=== PATIENT | male | born 1965 | race Caucasian/White ===

== ENCOUNTER 2018-01-25 21:15 | Inpatient (IN) | payer MEDICAID ==
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
[2018-01-25] MEDS ORDERED: HYDROMORPHONE HCL INJ/PF 2 MG/ML AMPULE IV ONE (22:08)
[2018-01-25] MEDS ORDERED: NORMAL SALINE 1000 ML 1,000 ML IV ONE (22:08)
[2018-01-25 22:42] LABS: ABSOLUTE BASOPHILS # (AUTO) 0.1 10^3/uL (0.0-0.2); ABSOLUTE LYMPHOCYTES (AUTO) 1.2 10^3/uL (0.5-4.7); ABSOLUTE MONOCYTES (AUTO) 0.7 10^3/uL (0.1-1.4); ABSOLUTE NEUT (AUTO) 10.1 10^3/uL (1.7-8.2); BASOPHILS % (AUTO) 0.7 % (0-2); EOSINOPHILS % (AUTO) 0.1 % (0-6); HEMATOCRIT 45.4 % (37.9-51.0); HEMOGLOBIN 15.4 g/dL (13.5-17.0); LYMPHOCYTES % (AUTO) 10.1 % (13-45); MEAN CORPUSCULAR HEMOGLOBIN 32.2 pg (27.0-33.4); MEAN CORPUSCULAR VOLUME 95 fl (80-97); MONOCYTES % (AUTO) 5.6 % (3-13); PLATELET COUNT 190 10^3/uL (150-450); RED BLOOD COUNT 4.79 10^6/uL (4.35-5.55); RED CELL DISTRIBUTION WIDTH 13.8 % (11.5-14.0); SEGMENTED NEUTROPHILS % (AUTO) 83.5 % (42-78); TOTAL CELLS COUNTED % (AUTO) 100 %; WHITE BLOOD COUNT 12.2 10^3/uL (4.0-10.5)
[2018-01-25 23:09] LABS: ALANINE AMINOTRANSFERASE 36 U/L (21-72); ALBUMIN 4.5 g/dL (3.5-5.0); ALKALINE PHOSPHATASE 56 U/L (38-126); ANION GAP 14 (5-19); ASPARTATE AMINO TRANSFERASE 62 U/L (17-59); BILIRUBIN,DIRECT 0.3 mg/dL (0.0-0.4); BILIRUBIN,TOTAL 0.4 mg/dL (0.2-1.3); BLOOD UREA NITROGEN 6 mg/dL (7-20); CALCIUM 9.5 mg/dL (8.4-10.2); CARBON DIOXIDE 28 mmol/L (22-30); CHLORIDE 101 mmol/L (98-107); GLUCOSE 122 mg/dL (75-110); POTASSIUM 3.7 mmol/L (3.6-5.0); SODIUM 142.6 mmol/L (137-145); TOTAL PROTEIN 7.6 g/dL (6.3-8.2)
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
[2018-01-26] MEDS ORDERED: HYDROMORPHONE HCL INJ/PF 2 MG/ML AMPULE IV ONE (00:36)
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
[2018-01-26] MEDS ORDERED: MORPHINE SULFATE 10 MG/ML INJ IV PRN (03:25)
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
[2018-01-26] MEDS: NORMAL SALINE 1000 ML 1,000 ML IV PRN ×2 (06:26→19:40)
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
--- NOTE | 2018-01-26 10:38 | RADIOLOGY REPORT (SQ) ---
EXAM DESCRIPTION: CHEST SINGLE VIEW COMPLETED DATE/TIME: 01/26/2018 9:41 am REASON FOR STUDY: f/u ptx COMPARISON: CT chest 01/26/2018 EXAM PARAMETERS: NUMBER OF VIEWS: One view. TECHNIQUE: Single frontal radiographic view of the chest acquired. RADIATION DOSE: NA LIMITATIONS: None. FINDINGS: LUNGS AND PLEURA: There is marked apical lucency consistent with presence of large bullae seen on the CT. There is no evidence of an enlarging pneumothorax. MEDIASTINUM AND HILAR STRUCTURES: No masses. Contour normal. HEART AND VASCULAR STRUCTURES: Heart normal in size. Normal vasculature. BONES: Fracture of the distal left clavicle, possible acromial fracture, left rib fractures. HARDWARE: None in the chest. OTHER: No other significant finding. IMPRESSION: There is no evidence of enlarging pneumothorax. Large apical bullae are present. TECHNICAL DOCUMENTATION: JOB ID: [id number] [employer]- All Rights Reserved Reading location - IP/workstation name: [email or web address]
[2018-01-26] MEDS ORDERED: GUAIFENESIN SYRP 200 MG/10 ML UDC PO PRN (11:36)
[2018-01-26] MEDS ORDERED: NICOTINE 21 MG/24 HR PATCH.TD24 TD ONE (12:00)
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
[2018-01-26] MEDS: OXYCODONE-ACETAMINOPHEN 5-325 MG TABLET PO PRN (19:40)
[2018-01-27] MEDS: OXYCODONE-ACETAMINOPHEN 5-325 MG TABLET PO PRN (05:19)
[2018-01-27] MEDS: NORMAL SALINE 1000 ML 1,000 ML IV PRN (05:20)
[2018-01-27 06:15] LABS: HEMATOCRIT 42.8 % (37.9-51.0); HEMOGLOBIN 14.6 g/dL (13.5-17.0); MEAN CORPUSCULAR HEMOGLOBIN 32.3 pg (27.0-33.4); MEAN CORPUSCULAR HGB CONC 34.2 g/dL (32.0-36.0); MEAN CORPUSCULAR VOLUME 95 fl (80-97); PLATELET COUNT 183 10^3/uL (150-450); RED BLOOD COUNT 4.53 10^6/uL (4.35-5.55); RED CELL DISTRIBUTION WIDTH 13.9 % (11.5-14.0); WHITE BLOOD COUNT 10.8 10^3/uL (4.0-10.5)
[2018-01-27 06:40] LABS: ANION GAP 11 (5-19); BLOOD UREA NITROGEN 7 mg/dL (7-20); CALCIUM 8.8 mg/dL (8.4-10.2); CARBON DIOXIDE 25 mmol/L (22-30); CHLORIDE 100 mmol/L (98-107); GLUCOSE 100 mg/dL (75-110); POTASSIUM 3.5 mmol/L (3.6-5.0); SODIUM 135.8 mmol/L (137-145)
--- NOTE | 2018-01-27 08:10 | RADIOLOGY REPORT (SQ) ---
EXAM DESCRIPTION: CHEST SINGLE VIEW COMPLETED DATE/TIME: 01/27/2018 7:49 am REASON FOR STUDY: PNEUMONIA COMPARISON: Chest x-ray and chest CT dated 01/26/2018. EXAM PARAMETERS: NUMBER OF VIEWS: One view. TECHNIQUE: Single frontal radiographic view of the chest acquired. RADIATION DOSE: NA LIMITATIONS: None. FINDINGS: LUNGS AND PLEURA: Apical bullae. No large or increasing pneumothorax. Lungs otherwise cl ear. MEDIASTINUM AND HILAR STRUCTURES: No masses. Contour normal. HEART AND VASCULAR STRUCTURES: Heart normal in size. Normal vasculature. BONES: Left rib fractures and fracture of the left clavicle. HARDWARE: None in the chest. OTHER: No other significant finding. IMPRESSION: NO CHANGE IN APPEARANCE OF THE CHEST. NO LARGE OR INCREASING PNEUMOTHORAX. TECHNICAL DOCUMENTATION: JOB ID: [id number] [employer]- All Rights Reserved Reading location - IP/workstation name: [email or web address]
[2018-01-27] MEDS ORDERED: NICOTINE 21 MG/24 HR PATCH.TD24 TD SCH (10:00)
[2018-01-27 12:36] VITALS: BP 150/82
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
== END 2018-01-27 12:05 | disposition home or self-care (01) | DRG 200 ==
LOC: ER 21:15 → EH 01-26 03:23 → 4S 01-26 05:00
PROVIDERS: ADMIT Surgery; ATTEND Surgery
DX: S27.0XXA Traumatic pneumothorax, initial encounter (principal); S22.42XA Multiple fractures of ribs, left side, initial encounter for closed fracture; S27.898A Other injury of other specified intrathoracic organs, initial encounter; S42.002A Fracture of unspecified part of left clavicle, initial encounter for closed fracture; F10.20 Alcohol dependence, uncomplicated; S42.032A Displaced fracture of lateral end of left clavicle, initial encounter for closed fracture; S42.142A Displaced fracture of glenoid cavity of scapula, left shoulder, initial encounter for closed fracture; S42.152A Displaced fracture of neck of scapula, left shoulder, initial encounter for closed fracture; M19.90 Unspecified osteoarthritis, unspecified site; J43.9 Emphysema, unspecified; F17.210 Nicotine dependence, cigarettes, uncomplicated; V29.88XA Motorcycle rider (driver) (passenger) injured in other specified transport accidents, initial encounter; Y92.410 Unspecified street and highway as the place of occurrence of the external cause; Z85.9 Personal history of malignant neoplasm, unspecified; Z82.61 Family history of arthritis; Z82.49 Family history of ischemic heart disease and other diseases of the circulatory system; Z82.3 Family history of stroke
CPT/HCPCS: 36415; 71045; 71260; 72125; 74177; 80048; 80053; 85025; 85027; 94799; 96374; 96376; 99285; J1170; J2270; J3490; J7030

== ENCOUNTER 2019-02-06 16:01 | Emergency (ER) | payer MEDICAID ==
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
--- NOTE | 2019-02-06 17:10 | RADIOLOGY REPORT (SQ) ---
EXAM DESCRIPTION: TOE RIGHT COMPLETED DATE/TIME: 02/06/2019 4:59 pm REASON FOR STUDY: fall, right great toe pain COMPARISON: None. NUMBER OF VIEWS: Three views. TECHNIQUE: AP, lateral, and oblique images acquired of the right first toe. LIMITATIONS: None. FINDINGS: MINERALIZATION: Normal. BONES: Comminuted fracture across the base of the distal phalanx of the great toe without significant displacement. Intra-articular extension. JOINTS: No effusions. SOFT TISSUES: No soft tissue swelling. No foreign body. OTHER: No other significant finding. IMPRESSION: Comminuted fracture distal phalanx great toe. COMMENT: SITE OF TRAUMA/COMPLAINT MARKED/STAMP COMPLETED: Yes TECHNICAL DOCUMENTATION: JOB ID: [id number] [employer]- All Rights Reserved Reading location - IP/workstation name: [email or web address]
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
[2019-02-06] MEDS ORDERED: IBUPROFEN 600 MG TABLET PO ONE (17:22)
[2019-02-06] MEDS ORDERED: ACETAMINOPHEN 325 MG TABLET PO ONE (17:22)
[2019-02-06] MEDS ORDERED: DIPH/PERTUSS(ACELL)/TETANUS VAC/PF 0.5 ML SYR (>=10YO) IM ONE (17:22)
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
[2019-02-06 18:48] VITALS: BP 122/78
== END 2019-02-06 18:47 | disposition home or self-care (01) ==
LOC: ER 16:01
DX: S62.515A Nondisplaced fracture of proximal phalanx of left thumb, initial encounter for closed fracture (principal); S92.424A Nondisplaced fracture of distal phalanx of right great toe, initial encounter for closed fracture; S62.232A Other displaced fracture of base of first metacarpal bone, left hand, initial encounter for closed fracture; S00.511A Abrasion of lip, initial encounter; M79.641 Pain in right hand; M79.642 Pain in left hand; M54.5 Low back pain; M79.674 Pain in right toe(s); V29.40XA Motorcycle driver injured in collision with unspecified motor vehicles in traffic accident, initial encounter; F10.120 Alcohol abuse with intoxication, uncomplicated; I25.10 Atherosclerotic heart disease of native coronary artery without angina pectoris; M47.9 Spondylosis, unspecified; J43.9 Emphysema, unspecified; F17.210 Nicotine dependence, cigarettes, uncomplicated; Z71.6 Tobacco abuse counseling
CPT/HCPCS: 99406; 99284; 90471; 73660; 73120; 70450; 72125; 90715; 29125; 29515; J3490 ×2

== ENCOUNTER 2019-06-14 17:27 | Emergency (ER) | payer MEDICAID ==
[~2019-06-14 17:27] MED LIST: ETOMIDATE INJ/PF 20 MG/10 ML SDV IV ONE
[2019-06-14] MEDS ORDERED: ASPIRIN 81 MG TABLET, CHEWABLE PO ONE (17:38)
[2019-06-14] MEDS ORDERED: DILTIAZEM HCL INJ 25 MG/5 ML VIAL IV ONE (17:52)
[2019-06-14] MEDS ORDERED: DILTIAZEM HCL INJ 25 MG/5 ML VIAL ONE (17:53)
[2019-06-14 18:01] LABS: ABSOLUTE BASOPHILS # (AUTO) 0.1 10^3/uL (0.0-0.2); ABSOLUTE LYMPHOCYTES (AUTO) 1.6 10^3/uL (0.5-4.7); ABSOLUTE MONOCYTES (AUTO) 0.7 10^3/uL (0.1-1.4); ABSOLUTE NEUT (AUTO) 6.1 10^3/uL (1.7-8.2); EOSINOPHILS % (AUTO) 0.2 % (0-6); HEMATOCRIT 36.8 % (37.9-51.0); HEMOGLOBIN 12.6 g/dL (13.5-17.0); LYMPHOCYTES % (AUTO) 18.9 % (13-45); MEAN CORPUSCULAR HEMOGLOBIN 33.8 pg (27.0-33.4); MEAN CORPUSCULAR HGB CONC 34.1 g/dL (32.0-36.0); MEAN CORPUSCULAR VOLUME 99 fl (80-97); MONOCYTES % (AUTO) 8.5 % (3-13); PLATELET COUNT 207 10^3/uL (150-450); RED BLOOD COUNT 3.73 10^6/uL (4.35-5.55); RED CELL DISTRIBUTION WIDTH 13.8 % (11.5-14.0); SEGMENTED NEUTROPHILS % (AUTO) 71.4 % (42-78); TOTAL CELLS COUNTED % (AUTO) 100 %; WHITE BLOOD COUNT 8.5 10^3/uL (4.0-10.5)
[2019-06-14 18:04] LABS: ALBUMIN 4.2 g/dL (3.5-5.0); ALKALINE PHOSPHATASE 80 U/L (38-126); ANION GAP 14 (5-19); ASPARTATE AMINO TRANSFERASE 105 U/L (17-59); BILIRUBIN,DIRECT 0.2 mg/dL (0.0-0.4); BILIRUBIN,TOTAL 0.8 mg/dL (0.2-1.3); BLOOD UREA NITROGEN 8 mg/dL (7-20); CALCIUM 9.5 mg/dL (8.4-10.2); CARBON DIOXIDE 30 mmol/L (22-30); CHLORIDE 97 mmol/L (98-107); CREATINE KINASE 257 U/L (55-170); GLUCOSE 100 mg/dL (75-110); TOTAL PROTEIN 7.5 g/dL (6.3-8.2)
[2019-06-14] MEDS: NORMAL SALINE 1000 ML 1,000 ML IV PRN ×2 (18:04→18:05)
--- NOTE | 2019-06-14 18:06 | ER Document Report ---
ED General - General Chief Complaint: Chest Pain Stated Complaint: CHEST PAIN Time Seen by Provider: 06/14/19 17:33 TRAVEL OUTSIDE OF THE [place] IN LAST 30 DAYS: No - HPI Notes: Patient is a 54-year-old male who presents emergency department for evaluation of chest pain. He described it as a "heartburn" sensation. He states is been going on intermittently for the last 2 weeks. He states today it started while he was working on his brother's truck. He states he has had some associated nausea vomiting, occasional shortness of breath. He states that he was using Tums, which seemed to help his pain at first, but now they do not seem to be. He states that over the last 2 hours he is noticed that his heart is "pounding really hard." He has never had anything similar to this in the past. - Related Data Allergies/Adverse Reactions: No Known Allergies Allergy (Verified 02/06/19 16:12) Home Medications: None Past Medical History - General Information source: Patient - Social History Smoking Status: Current Every Day Smoker Frequency of alcohol use: Heavy - Drinks whiskey daily Family History: Arthritis, CAD, CVA, Hyperlipidemia, Hypertension, Malignancy Pulmonary Medical History: Reports: Hx COPD Renal/ Medical History: Denies: Hx Peritoneal Dialysis Musculoskeletal Medical History: Reports Hx Arthritis, Reports Hx Musculoskeletal Deformity, Reports Hx Musculoskeletal Trauma Traumatic Medical History: Reports: Hx Fractures Past Surgical History: Reports: Hx Orthopedic Surgery - "steel in bilat lower legs" - Immunizations Immunizations up to date: Yes Hx Diphtheria, Pertussis, Tetanus Vaccination: Yes Review of Systems - Review of Systems Constitutional: No symptoms reported EENT: No symptoms reported Cardiovascular: See HPI Respiratory: See HPI Gastrointestinal: See HPI Genitourinary: No symptoms reported Musculoskeletal: No symptoms reported Skin: No symptoms reported Neurological/Psychological: No symptoms reported Physical Exam - Vital signs Vitals: Pulse Ox 95 06/14/19 17:35 - Notes Notes: Vital signs reviewed, please refer to chart. Head is normocephalic, atraumatic. Pupils equal round, reactive to light. Neck is supple without meningismus. Heart is irregularly irregular, rapid. Lungs are clear to auscultation bilaterally. Abdomen is soft, nontender, normoactive bowel sounds throughout. Extremities without cyanosis, clubbing. Posterior calves are nontender. Peripheral pulses are equal. Skin is warm and dry. Patient is awake, alert, neurological exam is nonfocal. Course - Re-evaluation Re-evalutation: 06/14/19 18:07 Patient presents emergency department for evaluation. On arrival he was in rapid atrial fibrillation. Patient was administered 20 mill grams of IV Cardizem, as his heart rate was in the 150s to 160s. Patient's heart rate responded significantly, he now has a heart rate in the 70s. Unfortunately, the patient's blood pressure did drop precipitously. Systolics in the 60s. He is given 2 L of IV fluids. He was placed in reverse Trendelenburg. His chest pain is entirely resolved at this point. We will continue to monitor. 06/14/19 22:19 Patient's blood pressure did respond well to the 2 L of fluids. Unfortunately, his rapid atrial fibrillation returned. His heart rate went to the 130s 140s. Patient was administered digoxin 0.25 mg IV. Patient's heart rate slowed to 110, then he converted to sinus rhythm. His blood pressure remained borderline but stable. Unfortunately, the patient's respiratory status worsened. He continued to be tachypneic. His pulse ox began to drop. Initially patient was placed on BiPAP. This did improve his sensation of dyspnea initially, but again the patient continued to decline. He became diaphoretic. His oxygenation would not improve. His respiratory rate remained between 36 and 40. My thought proce ss with that the patient may be having a mild amount of alcohol withdrawal, given the fact that he is a heavy drinker and had a blood alcohol of only 37. The patient was administered Ativan with absolutely no improvement. Decision was made to proceed with intubation. This is explained in great detail to the patient and he voiced understanding. He consented to this procedure. Patient received fentanyl, etomidate, succinylcholine, was intubated with a MAC 3, 7.5 ET tube placed on first attempt without issue. Upon auscultation of the lungs following this, he has diffuse crackles anteriorly. I am concerned about an ARDS picture in this patient. Patient is currently on the vent with 100% FiO2 and 10 of PEEP, his blood pressure is 99/75 his heart rate is 102, and he is 93%. Laboratory investigations have revealed positive troponin. He received aspirin upon arrival. He did not receive any nitroglycerin based on his low blood pressure. He was administered Lovenox. I am concerned about the possibility of pulmonary embolus, but at this time he is stable. I do believe he would benefit from pulmonology and critical care teams, so the decision was made to transfer the patient. I spoke with Dr. Wyatt, waiter/waitress head at [facility], who accepted the patient for further care. - Vital Signs Vital signs: Temp Pulse Resp BP Pulse Ox 15 112/82 90 L 06/14/19 22:01 06/14/19 22:01 06/14/19 22:01 - Laboratory Result Diagrams: 06/14/19 17:40 06/14/19 17:40 Laboratory results interpreted by me: 06/14/19 06/14/19 06/14/19 17:40 17:40 17:40 RBC 3.73 L Hgb 12.6 L Hct 36.8 L MCV 99 H MCH 33.8 H ABG pO2 ABG Total CO2 ABG O2 Saturation Potassium 2.9 L* Chloride 97 L Magnesium AST 105 H Creatine Kinase 257 H CK-MB (CK-2) 7.60 H 06/14/19 06/14/19 17:40 19:08 RBC Hgb Hct MCV MCH ABG pO2 50.8 L ABG Total CO2 21.8 L ABG O2 Saturation 85.9 L Potassium Chloride Magnesium 1.4 L AST Creatine Kinase CK-MB (CK-2) - Diagnostic Test Radiology reviewed: Image reviewed, Reports reviewed Radiology results interpreted by me: 06/14/19 22:18 Chest X-Ray 06/14/19 17:38 IMPRESSION: Chronic lung changes with no acute cardiopulmonary findings. - EKG Interpretation by Me Additional EKG results interpreted by me: 06/14/19 18:07 Atrial fibrillation with a rate of 148 bpm. Multiple PVCs noted. Normal axis and intervals. ST depression concerning for rate related ischemia. No old studies available for comparison. 06/14/19 22:18 Repeat EKG revealed sinus mechanism with a rate of 89 bpm, PVCs noted. Normal axis, prolonged QT interval. ST and T wave changes inferolaterally concerning for acute ischemia. Procedures - Intubation Orotracheal Airway evaluation: Normal anatomy Mallampati Classification: Class 2 Medications: Etomidate, Succinylcholine, Fentanyl Intubation method: Orotracheal Blade type: Papa Blade size: 2 Equipment used: Glidescope ETT size: 7.5 ETT secured at: Teeth Breath Sounds after Intubation: Equal End tidal CO2 confirmed: Yes PEEP: 10 Post Intubation Xray: Yes Intubation Complications: No complications Critical Care Note - Critical Care Note Total time excluding time spent on procedures (mins): 70 Discharge - Discharge Clinical Impression: NSTEMI, initial episode of care, Rapid atrial fibrillation, Respiratory failure requiring intubation, Hypokalemia, Hypomagnesemia Condition: Stable Disposition: [facility] Admitting Provider: Dr. Wyatt
--- NOTE | 2019-06-14 18:08 | RADIOLOGY REPORT (SQ) ---
EXAM DESCRIPTION: CHEST SINGLE VIEW COMPLETED DATE/TIME: 06/14/2019 5:46 pm REASON FOR STUDY: cp COMPARISON: 02/06/2013 EXAM PARAMETERS: NUMBER OF VIEWS: One view. TECHNIQUE: Single frontal radiographic view of the chest acquired. RADIATION DOSE: NA LIMITATIONS: None. FINDINGS: LUNGS AND PLEURA: Chronic interstitial changes. No acute infiltrate, effusion, or mass. MEDIASTINUM AND HILAR STRUCTURES: No masses. Contour normal. HEART AND VASCULAR STRUCTURES: Heart normal in size. Normal vasculature. BONES: No acute findings. HARDWARE: None in the chest. OTHER: No other significant finding. IMPRESSION: Chronic lung changes with no acute cardiopulmonary findings. TECHNICAL DOCUMENTATION: JOB ID: [id number] [employer]- All Rights Reserved Reading location - IP/workstation name: [email or web address]
[2019-06-14 18:12] LABS: POTASSIUM 2.9 mmol/L (3.6-5.0)
[2019-06-14 18:16] LABS: CREATINE KINASE MB 7.6 ng/mL (<4.55)
[2019-06-14 18:18] LABS: TROPONIN I 0.805 ng/mL
[2019-06-14] MEDS ORDERED: MAGNESIUM SULFATE/D5W 1 GM/100 ML RTUPB IV ONE ×3 (18:19→21:10)
[2019-06-14] MEDS ORDERED: POTASSI CL 20 MEQ/50 ML RIDER 20 MEQ/50 ML RTUPB IV ONE (18:19)
[2019-06-14] MEDS ORDERED: POTASSIUM CHLORIDE 20 MEQ PACKET PO ONE (18:19)
[2019-06-14 18:22] LABS: INTERNATIONAL RATION (INR) 1.01; PROTHROMBIN TIME 13.3 SEC (11.4-15.4)
[2019-06-14 18:23] LABS: PARTIAL THROMBOPLASTIN TIME 29.4 SEC (23.5-35.8)
[2019-06-14] MEDS ORDERED: ONDANSETRON HCL INJ/PF 4 MG/2 ML SDV ONE (18:23)
[2019-06-14] MEDS ORDERED: ONDANSETRON HCL INJ/PF 4 MG/2 ML SDV IV ONE (18:24)
[2019-06-14] MEDS ORDERED: ENOXAPARIN SODIUM INJ 60 MG/0.6 ML DISP.SYRIN SUBCUT ONE (18:36)
[2019-06-14] MEDS ORDERED: DIGOXIN INJ 0.5 MG/2 ML AMPULE IV ONE (18:48)
[2019-06-14 19:33] LABS: ARTERIAL BLOOD BASE EXCESS -3.6 mmol/L; ARTERIAL BLOOD H2CO3 1.06 mmol/L (1.05-1.35); ARTERIAL BLOOD HCO3 20.7 mmol/L (20-24); ARTERIAL BLOOD O2 SATURATION 85.9 % (94-98); ARTERIAL BLOOD PCO2 35.3 mmHg (35-45); ARTERIAL BLOOD PH 7.39 (7.35-7.45); ARTERIAL BLOOD PO2 50.8 mmHg (80-100); ARTERIAL BLOOD TOTAL CO2 21.8 mmol/L (23-27)
[2019-06-14 19:35] LABS: ARTERIAL BLOOD FIO2 4L
[2019-06-14] MEDS ORDERED: NORMAL SALINE 1000 ML 1,000 ML IV ONE (20:18)
[2019-06-14] MEDS ORDERED: LORAZEPAM INJ 2 MG/1 ML VIAL IV ONE (20:54)
--- NOTE | 2019-06-14 21:12 | EKG REPORT ---
SEVERITY:- ABNORMAL ECG - SINUS RHYTHM VENTRICULAR PREMATURE COMPLEX CONSIDER LEFT VENTRICULAR HYPERTROPHY ANTERIOR Q WAVES, POSSIBLY DUE TO LVH ABNORMAL T, CONSIDER ISCHEMIA, INFERIOR LEADS, IMPROVED FROM EARLIER EKG AT 1731 HOURS PROLONGED QT INTERVAL : Confirmed by: Olivier Noel MD 14-Jun-2019 21:12:08
--- NOTE | 2019-06-14 21:12 | EKG REPORT ---
SEVERITY:- ABNORMAL ECG - ATRIAL FIBRILLATION, V-RATE 110-188 PAIRED VENTRICULAR PREMATURE COMPLEXES LVH WITH SECONDARY REPOLARIZATION ABNORMALITY REPOL ABNRM, PROBABLE ISCHEMIA, DIFFUSE LEADS BORDERLINE PROLONGED QT INTERVAL : Confirmed by: Olivier Noel MD 14-Jun-2019 21:12:34
[2019-06-14] MEDS ORDERED: MIDAZOLAM HCL 50 MG/100 ML RTUINJ ONE (21:13)
[2019-06-14] MEDS ORDERED: FENTANYL CITRATE INJ/PF 100 MCG/2 ML AMPUL IV ONE (21:26)
[2019-06-14] MEDS ORDERED: SUCCINYLCHOLINE CHLORIDE INJ 200 MG/10 ML VIAL IV ONE (21:27)
[2019-06-14] MEDS ORDERED: ETOMIDATE INJ/PF 20 MG/10 ML SDV IV ONE (21:27)
[2019-06-14] MEDS ORDERED: MIDAZOLAM HCL 50 MG/100 ML RTUINJ IV PRN (21:46)
[2019-06-14] MEDS ORDERED: VECURONIUM BROMIDE INJ 10 MG VIAL IV ONE ×3 (21:56→21:57)
--- NOTE | 2019-06-14 22:19 | RADIOLOGY REPORT (SQ) ---
EXAM DESCRIPTION: XR CHEST 1 VIEW COMPLETED DATE/TME: 06/14/2019 00:00 CLINICAL HISTORY: 54 years Male POST INTUBATION COMPARISON: 01/27/2018 FINDINGS: Bilateral pulmonary infiltrates right greater than left. Small bilateral effusions. ET tube is above the level of aleisha. Nasogastric tube has its tip in the gastric body. Sidehole is at the level of the GE junction. This could be advanced 5 to 10 cm for more optimal positioning. IMPRESSION: Nasogastric tube with the tip in the gastric body. This could be advanced 5 to 10 cm Bilateral infiltrates and small effusions ET tube above the aleisha
[2019-06-14 22:28] LABS: APPEARANCE,URINE SLIGHTLY-CLOUDY; BILIRUBIN,URINE SMALL (NEGATIVE); GLUCOSE, URINE NEGATIVE (NEGATIVE); KETONES,URINE 20 mg/dL (NEGATIVE); LEUKOCYTE ESTERASE,URINE NEGATIVE (NEGATIVE); NITRITE,URINE NEGATIVE (NEGATIVE); PROTEIN,URINE 100 mg/dL (NEGATIVE); URINE SPECIFIC GRAVITY 1.024
[2019-06-14 22:29] LABS: COLOR,URINE DARK YELLOW
[2019-06-14 22:34] VITALS: BP 101/77
== END 2019-06-14 23:07 | disposition short-term general hospital (02) ==
LOC: ER 17:27
DX: I21.4 Non-ST elevation (NSTEMI) myocardial infarction (principal); I48.91 Unspecified atrial fibrillation; J96.90 Respiratory failure, unspecified, unspecified whether with hypoxia or hypercapnia; E87.6 Hypokalemia; E83.42 Hypomagnesemia; F17.200 Nicotine dependence, unspecified, uncomplicated
CPT/HCPCS: 93005; 36415; 82553; 80307; 82803; 82550; 83735; 84443; 85025; 85610; 85730; 80053; 81001; 84484; 71045; 94660 ×2; 93010; 31500; J1160; J3010; J3490 ×3; J2060; J3475; J0330; J2405; J3480; J2250; J7030; J1650; 51702; 96361; 96365; 96366; 96367; 96375; 99291